=== PATIENT | male | born 1945 | race Caucasian/White ===

== ENCOUNTER 2016-06-03 05:48 | Inpatient (IN) | payer MEDICARE, OTHER ==
[2016-05-22 09:53] VITALS: BP 143/76
--- NOTE | 2016-05-30 13:50 | HPE ---
DATE OF ADMISSION: 06/03/2016 HISTORY OF PRESENT ILLNESS: This is a patient with continuing symptomatic right hip osteoarthritis. The patient has consented for a right total hip arthroplasty per Dr. Rodri Yañez. He is scheduled for medical optimization with Dr. Mohr on 05/30/2016 at 1:30. X-rays are consistent with advanced osteoarthritis. ALLERGIES: No known drug allergies. CURRENT MEDICATIONS (List includes): - simvastatin 20 mg - fenofibrate 160 mg - multivitamin - adult - fish oil 1000 mg - Advair HFA 115/21 mcg MEDICAL PROBLEM LIST (Includes): 1. Symptomatic right hip osteoarthritis. 2. Hypercholesteremia. 3. Kidney and lung disease PAST SURGICAL HISTORY: 1. Some sort right great toe realignment. 2. Transurethral resection of the prostate (TURP). 3. Hernia repair. 4. Hemorrhoidectomy. 5. Septoplasty. SOCIAL HISTORY: He is a one-pack per day smoker. Rare social ethanol intake. Denies illicit drugs. FAMILY HISTORY: Positive for diabetes and cancer. REVIEW OF SYSTEMS: Denies chest pain, shortness of breath, dyspnea on exertion, fever, chills, malaise, upper respiratory or urinary tract symptoms. PHYSICAL EXAMINATION: Vitals: Height was 65 and 3/4 inches, weight 174.8, temperature 97.2, blood pressure (BP) 130/80, pulse 63, and respirations 13. His right lower extremity was inspected. Skin temperature, color, sensory and motor within normal limits. He has limited right hip range of motion with irritability. Bowel sounds x4, soft, nontender. Chest rises symmetrically. Lungs are clear to auscultation. Neck supple. Negative jugular venous distention (JVD) or bruits. Normocephalic. Labs were inspected. Anion gap was 6. Mean corpuscular volume borderline at 96.4. I do not see the results of his nasal and sinus culture at this time. [facility] x[facility] at [facility] showed hyperinflation of the lung martinez consistent with chronic obstructive pulmonary disease (COPD), no acute disease, as read by Dr. Saturnino Pierre on 05/22/2016. EKG showed sinus rhythm, poor R-wave progression, as read by Dr. Bowen on 05/22/2016. IMPRESSION: 1. Symptomatic right hip osteoarthritis. 2. Patient consented for a right total hip arthroplasty per Dr. Rodri Yañez. 3. Medical optimization scheduled today at 1:[address] Mohr. 4. On-call to operating room (OR) 2 grams IV Kefzol in OR. 5. Sequential compression device (SCD) thromboembolic deterrent stockings (TEDS ) in OR. Addendum 06/03/16 Patient has a history of right lower extremity DVT s/p TURP in 2013. MTDD
[~2016-06-03] VITALS: Ht 170.2 cm; Wt 79.0 kg
[2016-06-03] VITALS (8 sets, daily range): BP systolic 121–174; BP diastolic 61–85
[~2016-06-03 05:48] MED LIST: /TAMS4CA PO; ADVA115A INH; ALBU17IN INH; COUM1TAB19 PO; FENO160T10 PO; FINA5TAB2 PO; FISH1000 PO; LEVO500I7 PO; LOFI160T PO; MULT1TAB10 PO; MULTTAB4 PO; PERC7.5T12 PO; SIMV20TA2 PO; SPIR1CAP INH; SPIRIVA INH; VIAG100T PO; VITATAB11 PO
[2016-06-03] MEDS ORDERED: LR 1,000 ML IV SCH ×2 (06:15→09:45)
[2016-06-03] MEDS ORDERED: COUM1TAB17 PO (06:49)
[2016-06-03] MEDS ORDERED: BUPIVACAINE HCL 0.5% 10 ML VIAL As Ordered ONE (07:11)
[2016-06-03] MEDS ORDERED: fentaNYL 100 MCG/2 ML INJECTION (J3010) As Ordered ONE ×2 (07:11→08:00)
[2016-06-03] MEDS ORDERED: TRANEXAMIC ACID 100 MG/ML 10ML VIAL As Ordered ONE (07:11)
[2016-06-03] MEDS ORDERED: BUPIVACAINE HCL 0.25% 30 ML VIAL As Ordered ONE (07:11)
[2016-06-03] MEDS ORDERED: ceFAZolin 1GM INJ (J0690) As Ordered ONE (07:12)
[2016-06-03] MEDS ORDERED: EPINEPHrine INJ 1 MG/ML 1ML VIAL/AMP As Ordered ONE ×2 (07:12→07:13)
[2016-06-03] MEDS ORDERED: PROPOFOL 200 MG/20 ML VIAL As Ordered ONE (08:00)
[2016-06-03] MEDS ORDERED: MIDAZOLAM INJ 2 MG/2 ML VIAL (J2250) As Ordered ONE (08:00)
[2016-06-03] MEDS ORDERED: LIDOCAINE 2% INJ 100 MG/5 ML SDV (FOR ANES.) As Ordered ONE (08:00)
[2016-06-03] MEDS ORDERED: PHENYLephrine HCL 500 MCG/5 ML (100MCG/ML) SYRINGE (J2370) As Ordered ONE (08:09)
[2016-06-03] MEDS ORDERED: EPINEPHrine INJ 1 MG/ML 1ML VIAL/AMP XX ONE (08:15)
[2016-06-03] MEDS ORDERED: BUPIVACAINE HCL 0.25% 30 ML VIAL XX ONE (08:15)
[2016-06-03] MEDS ORDERED: ceFAZolin 1GM INJ (J0690) IR ONE (08:15)
[2016-06-03] MEDS ORDERED: fentaNYL 100 MCG/2 ML INJECTION (J3010) XX ONE (08:15)
[2016-06-03] MEDS ORDERED: TRANEXAMIC ACID 100 MG/ML 10ML VIAL XX ONE (08:15)
[2016-06-03] MEDS ORDERED: BUPIVACAINE HCL 0.5% 10 ML VIAL XX ONE (08:15)
[2016-06-03] MEDS ORDERED: ePHEDrine SULFATE 25 MG/5 ML(5MG/ML) SYRINGE As Ordered ONE (08:20)
[2016-06-03] MEDS ORDERED: MORPHINE PCA 1MG/ML 100ML CADD As Ordered ONE (09:11)
[2016-06-03] MEDS ORDERED: PERCOCET 5MG/325MG TAB PO PRN (09:45)
[2016-06-03] MEDS ORDERED: NALBUPHINE HCL 10 MG/ML AMP (J2300) IV PRN (09:45)
[2016-06-03] MEDS ORDERED: ACETAMINOPHEN TAB 650MG DOSE (2X325MG) PO PRN (09:45)
[2016-06-03] MEDS ORDERED: fentaNYL 100 MCG/2 ML INJECTION (J3010) IV PRN (09:45)
[2016-06-03] MEDS: D5W/0.45% SODIUM CHLORIDE 500 ML IV SCH ×4 (09:45→23:27)
[2016-06-03] MEDS ORDERED: PATIENT IS CURRENTLY ON AN ON-Q PAIN BUSTER PAIN RELIEF SYSTEM XX SCH (09:45)
[2016-06-03] MEDS ORDERED: diphenhydrAMINE INJ 50MG/ML VIAL (J1200) IV PRN (09:45)
[2016-06-03] MEDS ORDERED: NALOXONE INJ 0.4 MG/1 ML VIAL (J2310) IV PRN (09:45)
[2016-06-03] MEDS ORDERED: FLEET ENEMA PR PRN (09:45)
[2016-06-03] MEDS ORDERED: EPIDURAL/PCA KEYS XX PRN (09:45)
[2016-06-03] MEDS ORDERED: ONDANSETRON 4MG/2ML VIAL (J2405) IV PRN ×2 (09:45)
[2016-06-03] MEDS ORDERED: MORPHINE PCA 1MG/ML 100ML CADD IV PRN (09:45)
[2016-06-03] MEDS ORDERED: METOCLOPRAMIDE INJ 10MG/2ML VIAL (J2765) IV PRN (09:45)
[2016-06-03] MEDS ORDERED: ALBUTEROL 90 MCG/ACT 8GM HFA INHALER INH PRN (16:15)
[2016-06-03] MEDS ORDERED: WARFARIN SOD 5 MG TAB PO ONE (17:00)
--- NOTE | 2016-06-03 17:03 | RO ---
DATE OF PROCEDURE: 06/03/2016 PREOPERATIVE DIAGNOSIS: Right hip osteoarthritis. POSTOPERATIVE DIAGNOSIS: Right hip osteoarthritis. OPERATION PERFORMED: Right total hip replacement. SURGEON: Dr. Rodri Yañez BEAMING INSPECTOR: MOLINA Chu HISTORY: A 71-year-old male who is presenting with pain in his right hip secondary to osteoarthritis. FINDINGS AT SURGERY: Osteoarthritis. A #4 [place], a 56 cup with a 36 inside diameter; the neck was 1.5. At the conclusion, we had good range of motion, no instability and estimated blood loss of 150 mL. Mr. Alcocer manipulated the leg and retracted vital structures in order to expedite the procedure. DESCRIPTION OF PROCEDURE: After two attempts at spinal anesthetic, the patient had a Olivares catheter placed, IV antibiotics were administered and he was then turned right side up in the [place], padded appropriately and then prepped and draped. The right hip incision was anterolateral, the iliotibial (IT) band split in line with its fibers, the abductors reflected anteriorly. The labrum was incised and the hip dislocated. Intermedullary canal was reamed to a [place] #4. The neck was divided. Acetabulum was exposed and reamed sequentially from 46 up to 55 mm. At this point, we were at the base of the cotyloid fossa. We had good bleeding bone. The wound was thoroughly irrigated with pulsatile irrigation and then the permanent cup malleted into place, apex hole eliminator and the plastic installed. Following this, the stem was broached to a #4 and trial reductions were performed. After trial components were removed, the leg was irrigated and the permanent stem malleted into place. The Anna taper dried and engaged and the hip reduced. Range of motion showed good stability. The wound was irrigated. A PainBuster catheter was threaded into the hip for postoperative analgesia. The capsule was closed with heavy PDS suture. The abductors were repaired back to their insertion with the same heavy PDS. IT band closed in a similar fashion, subcu closed with #2-0 PDS and do. Dry dressing was applied and the patient transported to the recovery room, breathing spontaneously having tolerated the procedure well. Addendum to Derrick Yancey: The patient and his significant other were advised once again in the preoperative holding area that he should cease all use of the nicotine products, and we discussed the care and management to prevent deep vein thrombosis (DVT) as he does have a history for that. He expressed understanding and wished to proceed with surgery with no intention of stopping his use of nicotine.
[2016-06-03] MEDS: ADVAIR DISKUS 100/50 INH PWD INH SCH (20:02)
[2016-06-03] MEDS: SIMVASTATIN 20 MG TAB PO SCH (20:02)
[2016-06-04 03:00] VITALS: BP 171/80
[2016-06-04] MEDS: D5W/0.45% SODIUM CHLORIDE 500 ML IV SCH (04:21)
[2016-06-04 06:00] VITALS: BP 134/75
[2016-06-04] MEDS ORDERED: PERCOCET 5MG/325MG TAB PO PRN ×2 (06:45)
[2016-06-04] MEDS ORDERED: ONDANSETRON 4 MG TAB (S0181) PO PRN (06:45)
[2016-06-04 06:53] LABS: MEAN CORPUSCULAR HEMOGLOBIN 32.8 pg (27.0-33.0); MEAN CORPUSCULAR HGB CONC 34.5 g/dl (32.0-36.5); MEAN CORPUSCULAR VOLUME 94.9 fl (80.0-96.0); RED CELL DISTRIBUTION WIDTH 13.4 % (11.5-14.5); WHITE BLOOD COUNT 10.5 K/mm3 (4.0-10.0)
[2016-06-04 06:58] LABS: INR 1.31
[2016-06-04] MEDS: ADVAIR DISKUS 100/50 INH PWD INH SCH ×2 (07:21→08:31)
[2016-06-04] MEDS: TIOTROPIUM INHALER/CAPSULE (SPIRIVA) INH SCH (07:22)
--- NOTE | 2016-06-04 08:04 | IPNPDOC ---
Assessment/Plan Date Seen The patient was seen on 06/04/16. Problems Problems: (1) Hx pulmonary embolism Status: Resolved Problem Text: H/O PE in past felt to be from immobility Encourage OOB as soon as possible and Anticoagulation per ortho (2) COPD (chronic obstructive pulmonary disease) Status: Chronic Response to Treatment: Stable Problem Text: Continue Spiriva and Advair with Albuterol prn (3) CKD (chronic kidney disease), stage III Status: Chronic Response to Treatment: Stable Problem Text: Monitor renal function post-op (4) Hyperlipemia Status: Chronic Response to Treatment: Stable Problem Text: Continue Zocor Plan / VTE VTE Prophylaxis Ordered?: Yes (Coumadin per ortho) Subjective Review of Systems CC/HPI The patient is a 71-year-old male admitted with a reason for visit of Right Hip Arthritis. Events since last encounter Feels well. Hip pain as expected. Tolerating pain meds. Constitutional: Denies: Chills, Fever Pulmonary: Denies: Cough, Dyspnea Cardiovascular: Denies: Chest Pain, Palpitations Gastrointestinal: Denies: Abdominal Pain, Constipation, Diarrhea, Nausea, Vomiting Musculoskeletal: Reports: Joint Pain (Right hip pain post-operatively as expected) Objective Physical Examination General Exam: Positive: Alert, No Acute Distress Chest Exam: Positive: Clear to auscultation, Normal air movement Heart Exam: Positive: Rate Normal, Negative: Murmurs Abdomen Exam: Positive: Normal bowel sounds, Soft, Negative: Tenderness Extremity Exam: Negative: Edema Vital Signs/I&O Vital Signs Date Time Temp Pulse Resp B/P Pulse Ox O2 Delivery O2 Flow Rate FiO2 06/04/16 06:00 99.7 91 14 134/75 99 Nasal Cannula 2.0 I&O- Last 24 Hours up to 6 AM 06/04/16 06:00 Intake Total 3730 ml Output Total 2650 ml Balance 1080 ml Laboratory Data Labs 24H Laboratory Tests 2 06/04/16 06:30: Prothromb Time International Ratio 1.31, Prothrombin Time 16.4H CBC/BMP Laboratory Tests 06/04/16 06:30 Red Blood Count 4.17 L, Mean Corpuscular Volume 94.9, Mean Corpuscular Hemoglobin 32.8, Mean Corpuscular Hemoglobin Concent 34.5, Red Cell Distribution Width 13.4 CORKY MONTAÑO PA-C Jun 04, 2016 08:04
--- NOTE | 2016-06-04 08:13 | REP ---
Clinical: Status post arthroplasty. Technique: AP and cross-table lateral views. Findings: The patient is status post right hip replacement with normal positioning and appearance to the femoral and acetabular components. Overlying postsurgical changes appreciated. Impression: Satisfactory right hip replacement radiographs. Signed by Gilberto Nava MD 06/04/2016 08:04 A
[2016-06-04] MEDS: MOM 30ML SUSPENSION UDC PO SCH (08:30)
[2016-06-04] MEDS: PERCOCET 5MG/325MG TAB PO PRN ×4 (08:51→21:28)
[2016-06-04] MEDS: SENOKOT S TAB PO SCH ×2 (09:00→21:27)
[2016-06-04] MEDS ORDERED: MIRALAX *UNIT DOSE* 17GM PACKET PO SCH (09:00)
[2016-06-04 09:28] LABS: ALBUMIN 3.3 GM/DL (3.2-5.2); ALKALINE PHOSPHATASE 51 U/L (45-117); ALT/SGPT 17 U/L (12-78); ANION GAP 9 MEQ/L (8-16); AST/SGOT 27 U/L (15-37); BILIRUBIN,TOTAL 0.6 MG/DL (0.2-1.0); BLOOD UREA NITROGEN 12 MG/DL (7-18); CALCIUM LEVEL 8.8 MG/DL (8.8-10.2); CARBON DIOXIDE LEVEL 27 MEQ/L (21-32); CHLORIDE LEVEL 104 MEQ/L (98-107); CREATININE FOR GFR 1.12 MG/DL (0.70-1.30); GLOMERULAR FILTRATION RATE > 60.0 (>42); GLUCOSE, FASTING 114 MG/DL (83-110); POTASSIUM SERUM 3.7 MEQ/L (3.5-5.1); SODIUM LEVEL 140 MEQ/L (136-145); TOTAL PROTEIN 6.3 GM/DL (6.4-8.2)
[2016-06-04 10:00] VITALS: BP 176/75
[2016-06-04 14:00] VITALS: BP 123/62
[2016-06-04] MEDS ORDERED: WARFARIN SOD 5 MG TAB PO ONE (17:00)
[2016-06-04 18:00] VITALS: BP 133/64
[2016-06-04] MEDS: SIMVASTATIN 20 MG TAB PO SCH (21:27)
[2016-06-04 22:00] VITALS: BP 162/69
[2016-06-05 00:15] VITALS: BP 112/60
[2016-06-05] MEDS: PERCOCET 5MG/325MG TAB PO PRN ×2 (05:50→12:21)
[2016-06-05 06:00] VITALS: BP 120/62
[2016-06-05 07:16] LABS: INR 1.38
[2016-06-05] MEDS: ADVAIR DISKUS 100/50 INH PWD INH SCH (07:23)
[2016-06-05] MEDS: TIOTROPIUM INHALER/CAPSULE (SPIRIVA) INH SCH (07:23)
[2016-06-05] MEDS ORDERED: PERC5TAB6 PO (08:19)
[2016-06-05] MEDS ORDERED: COUM2.5T11 PO (08:19)
[2016-06-05] MEDS: MOM 30ML SUSPENSION UDC PO SCH (08:53)
[2016-06-05] MEDS: SENOKOT S TAB PO SCH (08:53)
[2016-06-05] MEDS ORDERED: MIRALAX *UNIT DOSE* 17GM PACKET PO SCH (09:00)
--- NOTE | 2016-06-05 12:05 | IPN ---
DATE: 06/05/2016 Derrick is seen on [facility]. He is constipated. Otherwise, he offers no complaints. No chest pain or shortness of breath. He feels that he is progressing well with his rehabilitation. PHYSICAL EXAMINATION: 120/60, pulse 79, respiratory rate 18, 95% oxygen saturation, 99.3 degrees. GENERAL APPEARANCE: Alert, conversant, no distress. LUNGS: Clear. HEART: Regular rate and rhythm. ABDOMEN: Soft, nontender, nondistended. Good bowel sounds. IMPRESSION: 1. Constipation. Bowel care was augmented. 2. History of pulmonary embolism. Anticoagulation per orthopedics. 3. Chronic obstructive pulmonary disease (COPD). Continue Spiriva and Advair. 4. Chronic kidney disease. Monitor renal function and adjust dose of medications accordingly. 5. Hyperlipidemia. Continue simvastatin.
[2016-06-05 14:00] VITALS: BP 126/67
[2016-06-05] MEDS ORDERED: WARFARIN SOD 7.5 MG TAB PO ONE (17:00)
--- NOTE | 2016-06-07 08:59 | DSES ---
DATE OF ADMISSION: 06/03/2016 DATE OF DISCHARGE: 06/05/2016 ADMITTING DIAGNOSIS: Right hip osteoarthritis (OA). OTHER DIAGNOSES: 1. Hypercholesterolemia. 2. Kidney disease. 3. Lung disease. DISCHARGE DIAGNOSIS: Right hip OA status post right total hip arthroplasty. OPERATION PERFORMED: Right total hip arthroplasty. HISTORY: This is a 71-year-old male with progressively worsening right hip pain and stiffness. The patient was admitted for elective right hip replacement. HOSPITAL COURSE: The patient was admitted on the day of surgery and underwent a right hip arthroplasty which was uneventful. He did well in the postoperative period and his hospital course was without complications. The patient was up with physical therapy per their protocol and his pain was controlled. On the day of discharge, the patient was doing well. He was weightbearing as tolerated. He will use adjusted dose Coumadin and thromboembolic deterrent (INES) stockings for 30 days postoperatively for deep vein thrombosis (DVT) prophylaxis. He will use oral medications for pain control. Also, he will follow in the office in 2 weeks for staple removal, will resume preoperative medications and diet, and he was given instructions for wound monitoring and activity limitations. Please refer to the medical record for further details.
== END 2016-06-05 14:20 | disposition home health service (06) | DRG 470 ==
LOC: M OR 05:48 → M MS5PR 10:40
PROVIDERS: ADMIT Orthopaedic Surgery; ATTEND Orthopaedic Surgery
PROC: 0SR902A Replacement of Right Hip Joint with Metal on Polyethylene Synthetic Substitute, Uncemented, Open Approach (ICD-10-PCS; principal; 2016-06-03 07:30)
DX: M16.11 Unilateral primary osteoarthritis, right hip (principal); E78.5 Hyperlipidemia, unspecified; F17.210 Nicotine dependence, cigarettes, uncomplicated; J44.9 Chronic obstructive pulmonary disease, unspecified; N18.3 Chronic kidney disease, stage 3 (moderate); K59.00 Constipation, unspecified; Z86.718 Personal history of other venous thrombosis and embolism; Z79.899 Other long term (current) drug therapy

== ENCOUNTER → 2016-06-17 | Outpatient (REF) | payer MEDICARE, OTHER ==
[~2016-06-17] MED LIST changes: +COUM1TAB17 PO; +COUM2.5T11 PO; +PERC5TAB6 PO
[2016-06-17 13:45] LABS: INR 1.2
== END ==
LOC: M LABDRAW1 10:11
PROVIDERS: ATTEND Orthopaedic Surgery
DX: Z79.01 Long term (current) use of anticoagulants (principal)

== ENCOUNTER → 2016-10-01 | Outpatient (REF) | payer MEDICARE, OTHER ==
[2016-10-01 16:03] LABS: MEAN CORPUSCULAR HEMOGLOBIN 32.7 pg (27.0-33.0); MEAN CORPUSCULAR HGB CONC 33.9 g/dl (32.0-36.5); MEAN CORPUSCULAR VOLUME 96.7 fl (80.0-96.0); RED CELL DISTRIBUTION WIDTH 13.4 % (11.5-14.5); WHITE BLOOD COUNT 5.6 K/mm3 (4.0-10.0)
[2016-10-01 16:16] LABS: ALBUMIN 3.9 GM/DL (3.2-5.2); ALBUMIN/GLOBULIN RATIO 1.26 (1.00-1.93); ALKALINE PHOSPHATASE 91 U/L (45-117); ALT/SGPT 16 U/L (12-78); ANION GAP 8 MEQ/L (8-16); AST/SGOT 14 U/L (15-37); BILIRUBIN,TOTAL 0.3 MG/DL (0.2-1.0); BLOOD UREA NITROGEN 20 MG/DL (7-18); CALCIUM LEVEL 9.2 MG/DL (8.8-10.2); CARBON DIOXIDE LEVEL 27 MEQ/L (21-32); CHLORIDE LEVEL 107 MEQ/L (98-107); CHOLESTEROL LEVEL 184 MG/DL (<200); CREATININE FOR GFR 1.06 MG/DL (0.70-1.30); GLOMERULAR FILTRATION RATE > 60.0 (>42); GLUCOSE, FASTING 118 MG/DL (83-110); SODIUM LEVEL 142 MEQ/L (136-145); TRIGLYCERIDES LEVEL 61 MG/DL (<150)
== END ==
LOC: M SFHCLACO 09:49
PROVIDERS: ATTEND Physician Assistant
DX: F17.210 Nicotine dependence, cigarettes, uncomplicated (principal); E78.2 Mixed hyperlipidemia

== ENCOUNTER → 2016-12-18 | Outpatient (CLI) | payer MEDICARE, OTHER ==
[~2016-12-18] MED LIST changes: -COUM2.5T11 PO; +COUM2.5T17 PO; +PERC5TAB12 PO; -PERC5TAB6 PO
== END ==
LOC: M SMT 10:37
PROVIDERS: ATTEND Nurse Practitioner Women's Health
DX: N40.0 Benign prostatic hyperplasia without lower urinary tract symptoms (principal); Z12.5 Encounter for screening for malignant neoplasm of prostate
CPT/HCPCS: 36415; 81001; 87086; G0103; G0463

== ENCOUNTER → 2017-01-16 | Outpatient (REF) | payer MEDICARE, OTHER ==
[2017-01-16 15:02] LABS: ALBUMIN 3.9 GM/DL (3.2-5.2); ALBUMIN/GLOBULIN RATIO 1.26 (1.00-1.93); BILIRUBIN,TOTAL 0.3 MG/DL (0.2-1.0); CALCIUM LEVEL 9.9 MG/DL (8.8-10.2); CREATININE FOR GFR 1.37 MG/DL (0.70-1.30); GLOMERULAR FILTRATION RATE 54.5 (>42); POTASSIUM SERUM 4.4 MEQ/L (3.5-5.1)
== END ==
LOC: M SFHCLACO 08:32
PROVIDERS: ATTEND Physician Assistant
DX: E78.2 Mixed hyperlipidemia (principal); J44.1 Chronic obstructive pulmonary disease with (acute) exacerbation; N40.0 Benign prostatic hyperplasia without lower urinary tract symptoms; N18.3 Chronic kidney disease, stage 3 (moderate); Z12.5 Encounter for screening for malignant neoplasm of prostate; N52.9 Male erectile dysfunction, unspecified; Z86.711 Personal history of pulmonary embolism; M25.551 Pain in right hip

== ENCOUNTER → 2017-05-08 | Outpatient (CLI) | payer MEDICARE, OTHER | LOC: M SMT PRO 08:12 | DX: N52.9 Male erectile dysfunction, unspecified (principal) | CPT/HCPCS: 93980 ==

== ENCOUNTER → 2017-05-22 | Outpatient (REF) | payer MEDICARE, OTHER ==
[2017-05-22 15:14] LABS: ALBUMIN 4.1 GM/DL (3.2-5.2); ALBUMIN/GLOBULIN RATIO 1.37 (1.00-1.93); ALKALINE PHOSPHATASE 51 U/L (45-117); ALT/SGPT 21 U/L (12-78); ANION GAP 6 MEQ/L (8-16); AST/SGOT 24 U/L (7-37); BILIRUBIN,TOTAL 0.4 MG/DL (0.2-1.0); BLOOD UREA NITROGEN 23 MG/DL (7-18); CALCIUM LEVEL 9.4 MG/DL (8.8-10.2); CARBON DIOXIDE LEVEL 29 MEQ/L (21-32); CHLORIDE LEVEL 107 MEQ/L (98-107); CHOLESTEROL LEVEL 135 MG/DL (<200); CREATININE FOR GFR 1.23 MG/DL (0.70-1.30); GLOMERULAR FILTRATION RATE > 60.0 (>42); GLUCOSE, FASTING 99 MG/DL (83-110); POTASSIUM SERUM 3.9 MEQ/L (3.5-5.1); SODIUM LEVEL 142 MEQ/L (136-145); TOTAL PROTEIN 7.1 GM/DL (6.4-8.2); TRIGLYCERIDES LEVEL 51 MG/DL (<150)
== END ==
LOC: M SFHCLACO 08:10
PROVIDERS: ATTEND Physician Assistant
DX: E78.2 Mixed hyperlipidemia (principal); J44.1 Chronic obstructive pulmonary disease with (acute) exacerbation

== ENCOUNTER → 2017-08-12 | Outpatient (CLI) | payer MEDICARE, OTHER ==
[2017-08-12 10:19] LABS: HEMATOCRIT 45.4 % (42.0-52.0); HEMOGLOBIN 15.3 g/dl (14.0-18.0); MEAN CORPUSCULAR HEMOGLOBIN 31.8 pg (27.0-33.0); MEAN CORPUSCULAR HGB CONC 33.7 g/dl (32.0-36.5); MEAN CORPUSCULAR VOLUME 94.4 fl (80.0-96.0); PLATELET COUNT, AUTOMATED 273 10^3/uL (150-450); RED BLOOD COUNT 4.81 10^6/uL (4.30-6.10); RED CELL DISTRIBUTION WIDTH 12.4 % (11.5-14.5); WHITE BLOOD COUNT 5.7 10^3/uL (4.0-10.0)
[2017-08-12 10:30] LABS: INR 1.02; PROTHROMBIN TIME 13.5 SECONDS (12.4-14.5)
[2017-08-12 10:31] LABS: PARTIAL THROMBOPLASTIN TIME 31.8 SECONDS (26.8-37.9)
[2017-08-12 11:08] LABS: ANION GAP 8 MEQ/L (8-16); BLOOD UREA NITROGEN 21 MG/DL (7-18); CALCIUM LEVEL 9.6 MG/DL (8.8-10.2); CARBON DIOXIDE LEVEL 28 MEQ/L (21-32); CHLORIDE LEVEL 104 MEQ/L (98-107); CREATININE FOR GFR 1.19 MG/DL (0.70-1.30); GLOMERULAR FILTRATION RATE > 60.0 (>42); GLUCOSE, FASTING 108 MG/DL (70-100); POTASSIUM SERUM 3.9 MEQ/L (3.5-5.1); SODIUM LEVEL 140 MEQ/L (136-145)
== END ==
LOC: M LAB 09:44
DX: Z01.818 Encounter for other preprocedural examination (principal); N52.9 Male erectile dysfunction, unspecified; R94.31 Abnormal electrocardiogram [ECG] [EKG]
CPT/HCPCS: 71046

== ENCOUNTER → 2017-08-15 | Outpatient (REF) | payer MEDICARE, OTHER | LOC: M SFHCPLAZ 17:17 | DX: L02.811 Cutaneous abscess of head [any part, except face] (principal) | CPT/HCPCS: 87186 ==

== ENCOUNTER → 2017-08-26 | Outpatient (REF) | payer MEDICARE, OTHER ==
[2017-08-26 13:43] LABS: BACTERIA, URINE SMALL AMOUNT; MICROSCOPIC EXAM PERFORMED; MUCUS, URINE SMALL AMOUNT (NEGATIVE); RBC, URINE 0-1 /hpf (0-3); WBC, URINE 0-1 /hpf (0-3)
[2017-08-26 14:03] LABS: TOTAL PROTEIN,RANDOM URINE 79.2 MG/DL (0.0-12.0)
[2017-08-26 16:24] LABS: SQUAMOUS EPITHELIAL CELL URINE NONE SEEN /hpf (SMALL AMT)
== END ==
LOC: M LAB REF 12:59
DX: R80.9 Proteinuria, unspecified (principal)
CPT/HCPCS: 82570

== ENCOUNTER 2017-08-27 05:56 | Day surgery (SDC) | payer MEDICARE, OTHER ==
[2017-08-27] MEDS ORDERED: PROPOFOL 200 MG/20 ML VIAL As Ordered ×6 (06:32→06:37)
[2017-08-27] MEDS ORDERED: NEOSTIGMINE 10 MG/10 ML VIAL (J2710) As Ordered ×2 (06:32)
[2017-08-27] MEDS ORDERED: ROCURONIUM BROMIDE 50 MG/5 ML VIAL As Ordered ×4 (06:32→06:33)
[2017-08-27] MEDS ORDERED: LIDOCAINE 2% INJ 100 MG/5 ML SDV (FOR ANES.) As Ordered ×2 (06:32)
[2017-08-27] MEDS ORDERED: GLYCOPYRROLATE INJ 0.2 MG/ML 2 ML VIAL As Ordered ×2 (06:33)
[2017-08-27] MEDS ORDERED: MIDAZOLAM INJ 2 MG/2 ML VIAL (J2250) As Ordered ×2 (06:38)
[2017-08-27] MEDS ORDERED: fentaNYL 100 MCG/2 ML INJECTION (J3010) As Ordered ×2 (06:39)
[2017-08-27] MEDS: LR 1,000 ML IV ×2 (07:08)
[2017-08-27] MEDS: GENTAMICIN SULF INJ 80MG/2ML VIAL (J1580) As Ordered ×2 (08:54)
[2017-08-27] MEDS: BACTRIM IV 160MG-800MG/10ML VIAL (S0039) XX ×2 (09:00)
[2017-08-27] MEDS: BACITRACIN OINT 30GM As Ordered ×2 (09:37)
[2017-08-27] MEDS ORDERED: ONDANSETRON 4MG/2ML VIAL (J2405) IV ×2 (10:15)
[2017-08-27] MEDS ORDERED: LR 1,000 ML IV ×2 (10:15)
[2017-08-27] MEDS ORDERED: fentaNYL 100 MCG/2 ML INJECTION (J3010) IV ×2 (10:15)
[2017-08-27] MEDS ORDERED: ACETAMINOPHEN 650MG ER TAB (TYLENOL ARTHRITIS) PO ×2 (14:00)
[2017-08-27] MEDS: PERCOCET 5MG/325MG TAB PO ×2 (15:01)
[2017-08-27] MEDS ORDERED: BACTRIM 160MG/800MG DS TAB PO ×2 (21:00)
== END 2017-08-27 16:58 | disposition home or self-care (01) ==
LOC: M SDC 05:56
DX: N52.03 Combined arterial insufficiency and corporo-venous occlusive erectile dysfunction (principal); E78.4 Other hyperlipidemia; J44.9 Chronic obstructive pulmonary disease, unspecified; J32.9 Chronic sinusitis, unspecified; Z79.52 Long term (current) use of systemic steroids; Z79.899 Other long term (current) drug therapy; F17.210 Nicotine dependence, cigarettes, uncomplicated
CPT/HCPCS: 54405

== ENCOUNTER → 2017-09-22 | Outpatient (CLI) | payer MEDICARE, OTHER | LOC: M RAD 10:11 | DX: N18.3 Chronic kidney disease, stage 3 (moderate) (principal) | CPT/HCPCS: 76775 ==

== ENCOUNTER → 2017-09-30 | Outpatient (CLI) | payer MEDICARE, OTHER ==
[~2017-09-30] MED LIST changes: -/TAMS4CA PO; -ADVA115A INH; -ALBU17IN INH; -COUM1TAB17 PO; -COUM1TAB19 PO; -COUM2.5T17 PO; -FENO160T10 PO; -FINA5TAB2 PO; -FISH1000 PO; +GASTROGRAFIN SOLUTION 30ML (Q9963) As Ordered; +ISOVUE-370 76% 100ML VIAL (Q9967) As Ordered; -LEVO500I7 PO; -LOFI160T PO; -MULT1TAB10 PO; -MULTTAB4 PO; -PERC5TAB12 PO; -PERC7.5T12 PO; -SIMV20TA2 PO; -SPIR1CAP INH; -SPIRIVA INH; -VIAG100T PO; -VITATAB11 PO
== END ==
LOC: M RAD 14:28
DX: N18.3 Chronic kidney disease, stage 3 (moderate) (principal); N28.1 Cyst of kidney, acquired
CPT/HCPCS: Q9963

== ENCOUNTER → 2017-10-17 | Outpatient (REF) | payer MEDICARE, OTHER | LOC: M SMT 17:03 | DX: N52.9 Male erectile dysfunction, unspecified (principal) | CPT/HCPCS: 87186 ==

== ENCOUNTER → 2017-10-23 | Outpatient (REF) | payer MEDICARE, OTHER | LOC: M SMT 10-24 13:54 | DX: Z96.89 Presence of other specified functional implants (principal) | CPT/HCPCS: 87205 ==

== ENCOUNTER → 2017-11-20 | Outpatient (REF) | payer MEDICARE, OTHER ==
[2017-11-20 15:05] LABS: ALBUMIN 3.7 GM/DL (3.2-5.2); ALBUMIN/GLOBULIN RATIO 1.19 (1.00-1.93); ALKALINE PHOSPHATASE 58 U/L (45-117); ALT/SGPT 23 U/L (12-78); ANION GAP 7 MEQ/L (8-16); AST/SGOT 23 U/L (7-37); BILIRUBIN,TOTAL 0.4 MG/DL (0.2-1.0); BLOOD UREA NITROGEN 14 MG/DL (7-18); CALCIUM LEVEL 9.2 MG/DL (8.8-10.2); CARBON DIOXIDE LEVEL 29 MEQ/L (21-32); CHLORIDE LEVEL 110 MEQ/L (98-107); CHOLESTEROL LEVEL 118 MG/DL (<200); CHOLESTEROL RISK RATIO 3.371 (<5); CREATININE FOR GFR 1.29 MG/DL (0.70-1.30); GLOMERULAR FILTRATION RATE 58.3 (>42); GLUCOSE, FASTING 90 MG/DL (70-100); HDL CHOLESTEROL 35 MG/DL (>40); NON-HDL-C 83 MG/DL; POTASSIUM SERUM 3.7 MEQ/L (3.5-5.1); SODIUM LEVEL 146 MEQ/L (136-145); TOTAL PROTEIN 6.8 GM/DL (6.4-8.2); TRIGLYCERIDES LEVEL 95 MG/DL (<150)
== END ==
LOC: M SFHCLACO 08:18
DX: E78.2 Mixed hyperlipidemia (principal); J44.1 Chronic obstructive pulmonary disease with (acute) exacerbation
CPT/HCPCS: 80053

== ENCOUNTER → 2017-12-01 | Outpatient (REF) | payer MEDICARE, OTHER | LOC: M SMT 12:08 | DX: T14.8XXA Other injury of unspecified body region, initial encounter (principal); N52.8 Other male erectile dysfunction; Z96.89 Presence of other specified functional implants; X58.XXXA Exposure to other specified factors, initial encounter; Y92.9 Unspecified place or not applicable | CPT/HCPCS: 87070; 87077; 87186 ==

== ENCOUNTER → 2017-12-29 | Outpatient (REF) | payer MEDICARE, OTHER | LOC: M SMT 12:43 | DX: T83.61XS Infection and inflammatory reaction due to implanted penile prosthesis, sequela (principal) | CPT/HCPCS: 87070; 87077; 87186 ==

== ENCOUNTER → 2018-01-19 | Outpatient (REF) | payer MEDICARE, OTHER | LOC: M SMT 13:14 | DX: T83.6 Infection and inflammatory reaction due to prosthetic device, implant and graft in genital tract (principal); X58.XXXA Exposure to other specified factors, initial encounter; Y92.9 Unspecified place or not applicable | CPT/HCPCS: 87186; 87205 ==

== ENCOUNTER → 2018-11-24 | Outpatient (REF) | payer MEDICARE, OTHER ==
[~2018-11-24] MED LIST changes: +ADVA115A INH; +ALBU17IN INH; +BACT800T5 PO; +CO Q10CA PO; +COUM1TAB17 PO; +COUM1TAB19 PO; +COUM2.5T17 PO; +FENO160T10 PO; +FINA5TAB2 PO; +FISH1000 PO; +FLOM0.4C39 PO; -GASTROGRAFIN SOLUTION 30ML (Q9963) As Ordered; -ISOVUE-370 76% 100ML VIAL (Q9967) As Ordered; +LEVO500I7 PO; +MULT1TAB10 PO; +MULTTAB4 PO; +PERC5TAB12 PO; +PERC7.5T12 PO; +SIMV20TA2 PO; +SPIR1CAP INH; +SPIRIVA INH; +TYLE650T35 PO; +VIAG100T PO; +VITATAB11 PO; +[UNRECOGNIZED DRUG - CODE] PO
[2018-11-24 20:33] LABS: ALBUMIN 3.8 GM/DL (3.2-5.2); ALT/SGPT 18 U/L (12-78); BILIRUBIN,TOTAL 0.6 MG/DL (0.2-1.0); BLOOD UREA NITROGEN 9 MG/DL (7-18); CALCIUM LEVEL 9.6 MG/DL (8.8-10.2); CARBON DIOXIDE LEVEL 30 MEQ/L (21-32); CHLORIDE LEVEL 106 MEQ/L (98-107); CHOLESTEROL LEVEL 155 MG/DL (<200); CHOLESTEROL RISK RATIO 3.522 (<5); GLOMERULAR FILTRATION RATE > 60.0 (>42); GLUCOSE, FASTING 75 MG/DL (70-100); HDL CHOLESTEROL 44 MG/DL (>40); LDL CHOLESTEROL 98 MG/DL (<100); NON-HDL-C 111 MG/DL; POTASSIUM SERUM 4.4 MEQ/L (3.5-5.1); SODIUM LEVEL 142 MEQ/L (136-145); TRIGLYCERIDES LEVEL 64 MG/DL (<150)
== END ==
LOC: M SFHCADAM 14:48
PROVIDERS: ATTEND Physician Assistant
DX: E78.2 Mixed hyperlipidemia (principal); J44.1 Chronic obstructive pulmonary disease with (acute) exacerbation

== ENCOUNTER → 2019-05-20 | Outpatient (REF) | payer MEDICARE, OTHER ==
[~2019-05-20] MED LIST changes: +SIMV20TA22 PO
[2019-05-20 13:06] LABS: ALBUMIN 3.8 GM/DL (3.2-5.2); ALT/SGPT 29 U/L (12-78); BILIRUBIN,TOTAL 0.3 MG/DL (0.2-1.0); BLOOD UREA NITROGEN 23 MG/DL (7-18); CALCIUM LEVEL 9.1 MG/DL (8.8-10.2); CARBON DIOXIDE LEVEL 26 MEQ/L (21-32); CHLORIDE LEVEL 110 MEQ/L (98-107); CHOLESTEROL LEVEL 164 MG/DL (<200); CHOLESTEROL RISK RATIO 4.432 (<5); CREATININE FOR GFR 0.99 MG/DL (0.70-1.30); GLOMERULAR FILTRATION RATE > 60.0 (>42); GLUCOSE, FASTING 89 MG/DL (70-100); HDL CHOLESTEROL 37 MG/DL (>40); LDL CHOLESTEROL 102 MG/DL (<100); NON-HDL-C 127 MG/DL; POTASSIUM SERUM 3.9 MEQ/L (3.5-5.1); SODIUM LEVEL 143 MEQ/L (136-145); TOTAL PROTEIN 6.7 GM/DL (6.4-8.2); TRIGLYCERIDES LEVEL 123 MG/DL (<150)
== END ==
LOC: M SFHCADAM 11:15
PROVIDERS: ATTEND Physician Assistant
DX: E78.2 Mixed hyperlipidemia (principal); Z12.5 Encounter for screening for malignant neoplasm of prostate
CPT/HCPCS: 80053; 80061; G0103

== ENCOUNTER → 2019-10-11 | Outpatient (REF) | payer MEDICARE, OTHER ==
[~2019-10-11] MED LIST changes: +ACET650T61 PO; -TYLE650T35 PO
[2019-10-11 17:57] LABS: APPEARANCE, URINE HAZY (CLEAR); BACTERIA, URINE AUTO NEGATIVE (NEGATIVE); BILIRUBIN, URINE AUTO NEGATIVE (NEGATIVE); BLOOD, URINE BLOOD NEGATIVE (NEGATIVE); COLOR, URINE YELLOW (YELLOW); GLUCOSE, URINE (UA) AUTO NEGATIVE (NEGATIVE); KETONE, URINE AUTO NEGATIVE (NEGATIVE); LEUKOCYTE ESTERASE, URINE AUTO NEGATIVE (NEGATIVE); NITRITE, URINE AUTO NEGATIVE (NEGATIVE); PROTEIN, URINE AUTO NEGATIVE (NEGATIVE); RBC, URINE AUTO 1 /HPF (0-3); SPECIFIC GRAVITY URINE AUTO 1.011 (1.002-1.035); SQUAMOUS EPITHELIAL CELL UR AU 0 /HPF (0-6); UROBILINOGEN, URINE AUTO 0.2 mg/dL (0.0-2.0); WBC, URINE AUTO 0 /HPF (0-3)
== END ==
LOC: M SMT 17:17
PROVIDERS: ATTEND Nurse Practitioner Women's Health
DX: R31.29 Other microscopic hematuria (principal)
CPT/HCPCS: 81001; 87086; G0463

== ENCOUNTER → 2019-10-26 | Outpatient (REF) | payer MEDICARE, OTHER ==
[~2019-10-26] MED LIST changes: -ACET650T61 PO; +TYLE650T35 PO
[2019-10-26 18:38] LABS: APPEARANCE, URINE HAZY (CLEAR); BACTERIA, URINE AUTO NEGATIVE (NEGATIVE); BILIRUBIN, URINE AUTO NEGATIVE (NEGATIVE); BLOOD, URINE BLOOD NEGATIVE (NEGATIVE); COLOR, URINE YELLOW (YELLOW); GLUCOSE, URINE (UA) AUTO NEGATIVE (NEGATIVE); KETONE, URINE AUTO NEGATIVE (NEGATIVE); LEUKOCYTE ESTERASE, URINE AUTO NEGATIVE (NEGATIVE); NITRITE, URINE AUTO NEGATIVE (NEGATIVE); PROTEIN, URINE AUTO NEGATIVE (NEGATIVE); RBC, URINE AUTO 0 /HPF (0-3); SPECIFIC GRAVITY URINE AUTO 1.004 (1.002-1.035); SQUAMOUS EPITHELIAL CELL UR AU 0 /HPF (0-6); UROBILINOGEN, URINE AUTO 0.2 mg/dL (0.0-2.0); WBC, URINE AUTO 0 /HPF (0-3)
== END ==
LOC: M LABSMT 15:59 → M SFHCADAM 16:00
PROVIDERS: ATTEND Nurse Practitioner Women's Health
DX: R31.29 Other microscopic hematuria (principal)

== ENCOUNTER → 2019-12-02 | Outpatient (REF) | payer MEDICARE, OTHER ==
[~2019-12-02] MED LIST changes: +ACET650T61 PO; -TYLE650T35 PO
[2019-12-02 17:56] LABS: ALBUMIN 3.8 GM/DL (3.2-5.2); ALT/SGPT 27 U/L (12-78); BILIRUBIN,TOTAL 0.3 MG/DL (0.2-1.0); BLOOD UREA NITROGEN 13 MG/DL (7-18); CALCIUM LEVEL 9.5 MG/DL (8.8-10.2); CARBON DIOXIDE LEVEL 28 MEQ/L (21-32); CHLORIDE LEVEL 107 MEQ/L (98-107); CHOLESTEROL LEVEL 149 MG/DL (<200); CREATININE FOR GFR 0.94 MG/DL (0.70-1.30); GLOMERULAR FILTRATION RATE > 60.0 (>42); GLUCOSE, FASTING 84 MG/DL (70-100); HDL CHOLESTEROL 39 MG/DL (>40); LDL CHOLESTEROL 97 MG/DL (<100); NON-HDL-C 110 MG/DL; POTASSIUM SERUM 4.3 MEQ/L (3.5-5.1); SODIUM LEVEL 138 MEQ/L (136-145); TOTAL PROTEIN 6.9 GM/DL (6.4-8.2); TRIGLYCERIDES LEVEL 65 MG/DL (<150)
== END ==
LOC: M SFHCADAM 11:31
PROVIDERS: ATTEND Physician Assistant
DX: E78.2 Mixed hyperlipidemia (principal)

== ENCOUNTER → 2020-04-26 | Outpatient (REF) | payer MEDICARE, OTHER ==
[2020-04-26 14:05] LABS: APPEARANCE, URINE CLEAR (CLEAR); BACTERIA, URINE AUTO 1+ (NEGATIVE); BILIRUBIN, URINE AUTO NEGATIVE (NEGATIVE); BLOOD, URINE BLOOD NEGATIVE (NEGATIVE); COLOR, URINE YELLOW (YELLOW); GLUCOSE, URINE (UA) AUTO NEGATIVE (NEGATIVE); KETONE, URINE AUTO NEGATIVE (NEGATIVE); LEUKOCYTE ESTERASE, URINE AUTO NEGATIVE (NEGATIVE); MUCUS, URINE SMALL (NEGATIVE); NITRITE, URINE AUTO NEGATIVE (NEGATIVE); PROTEIN, URINE AUTO NEGATIVE (NEGATIVE); RBC, URINE AUTO 0 /HPF (0-3); SPECIFIC GRAVITY URINE AUTO 1.015 (1.002-1.035); SQUAMOUS EPITHELIAL CELL UR AU 0 /HPF (0-6); WBC, URINE AUTO 0 /HPF (0-3)
== END ==
LOC: M SMT 13:08
PROVIDERS: ATTEND Nurse Practitioner Women's Health
DX: R31.29 Other microscopic hematuria (principal)
CPT/HCPCS: 81001; 87086; G0463

== ENCOUNTER → 2020-06-13 | Outpatient (REF) | payer MEDICARE, OTHER ==
[2020-06-13 14:08] LABS: ALBUMIN 3.7 GM/DL (3.2-5.2); ALT/SGPT 30 U/L (12-78); BILIRUBIN,TOTAL 0.4 MG/DL (0.2-1.0); BLOOD UREA NITROGEN 12 MG/DL (7-18); CALCIUM LEVEL 9.3 MG/DL (8.8-10.2); CARBON DIOXIDE LEVEL 30 MEQ/L (21-32); CHLORIDE LEVEL 107 MEQ/L (98-107); CHOLESTEROL LEVEL 167 MG/DL (<200); CHOLESTEROL RISK RATIO 3.711 (<5); CREATININE FOR GFR 0.98 MG/DL (0.70-1.30); GLOMERULAR FILTRATION RATE > 60.0 (>42); GLUCOSE, FASTING 108 MG/DL (70-100); HDL CHOLESTEROL 45 MG/DL (>40); LDL CHOLESTEROL 104 MG/DL (<100); NON-HDL-C 122 MG/DL; POTASSIUM SERUM 3.9 MEQ/L (3.5-5.1); SODIUM LEVEL 143 MEQ/L (136-145); TOTAL PROTEIN 6.3 GM/DL (6.4-8.2); TRIGLYCERIDES LEVEL 92 MG/DL (<150)
== END ==
LOC: M SFHCADAM 10:43
PROVIDERS: ATTEND Physician Assistant
DX: E78.2 Mixed hyperlipidemia (principal); Z12.5 Encounter for screening for malignant neoplasm of prostate
CPT/HCPCS: 80053; 80061; G0103; G0463

== ENCOUNTER → 2020-10-04 | Outpatient (CLI) | payer MEDICARE, OTHER ==
--- NOTE | 2020-10-04 11:42 | REP ---
INDICATION: ABN FINDING OF LUNG COMPARISON: Multiple the latest 04/13/2020 TECHNIQUE: Standard helical technique without the administration of intravenous contrast FINDINGS: The mediastinum and pulmonary koki are stable. No mass or adenopathy has developed. There is no significant change in appearance of the imaged upper abdomen or imaged osseous structures. Evaluation of the lung martinez shows no new abnormal nodules, masses, or opacities. All nodule seen on the latest prior examination are stable. IMPRESSION: Stable lung rads category 2 CT examination of the chest. <Electronically signed by Luther Chapa > 10/04/20 [id number]
== END ==
LOC: M RAD 09:36
PROVIDERS: ATTEND Internal Medicine Pulmonary Disease
DX: R91.1 Solitary pulmonary nodule (principal)

== ENCOUNTER → 2021-01-17 | Outpatient (REF) | payer MEDICARE, OTHER ==
[2021-01-17 13:43] LABS: BACTERIA, URINE AUTO NEGATIVE (NEGATIVE); MUCUS, URINE SMALL (NEGATIVE); RBC, URINE AUTO 2 /HPF (0-3); SQUAMOUS EPITHELIAL CELL UR AU 0 /HPF (0-6); WBC, URINE AUTO 1 /HPF (0-3)
== END ==
LOC: M LAB REF 12:56
PROVIDERS: ATTEND Nurse Practitioner Family
DX: R31.29 Other microscopic hematuria (principal)

== ENCOUNTER → 2021-02-21 | Outpatient (REF) | payer MEDICARE, OTHER | LOC: M SFHCADAM 11:46 | PROVIDERS: ATTEND Physician Assistant | DX: R05 Cough (principal) ==

== ENCOUNTER → 2021-02-21 | Outpatient (CLI) | payer MEDICARE, OTHER ==
--- NOTE | 2021-02-21 12:26 | REP ---
INDICATION: PERSISTENT COUGH. COMPARISON: 08/12/2017 the latest prior FINDINGS: The superior mediastinal structures are midline. The cardiac silhouette is unremarkable in size, shape, and position. The diaphragmatic surfaces of the lungs are regular, and the costophrenic angles are clear. The pulmonary martinez are clear. The imaged osseous structures are intact. IMPRESSION: There is no acute cardiopulmonary disease. <Electronically signed by Luther Chapa > 02/21/21 [id number]
== END ==
LOC: M ADAMS 11:47
PROVIDERS: ATTEND Physician Assistant
DX: R05 Cough (principal); J44.9 Chronic obstructive pulmonary disease, unspecified; F17.210 Nicotine dependence, cigarettes, uncomplicated
CPT/HCPCS: 71046; 87426; 87804; G0463; U0003

== ENCOUNTER → 2021-04-25 | Outpatient (REF) | payer MEDICARE, OTHER | LOC: M LAB REF 12:51 | PROVIDERS: ATTEND Nurse Practitioner Family | DX: E83.42 Hypomagnesemia (principal) ==

== ENCOUNTER → 2021-05-24 | Outpatient (REF) | payer MEDICARE, OTHER ==
[2021-05-24 16:10] LABS: HEPATITIS B CORE ANTIBODY IGM NEGATIVE (NEGATIVE); HEPATITIS B SURFACE ANTIBODY NEGATIVE (POSITIVE); HEPATITIS B SURFACE ANTIGEN NEGATIVE (NEGATIVE)
[2021-05-25 04:09] LABS: MUMPS VIRUS IgG ANTIBODY >300.0 AU/mL (Immune >10.9); RUBEOLA IgG ANTIBODY >300.0 AU/mL (Immune >16.4)
== END ==
LOC: M SFHCADAM 10:51
PROVIDERS: ATTEND Physician Assistant
DX: Z71.84 Encounter for health counseling related to travel (principal)

== ENCOUNTER → 2021-10-25 | Outpatient (CLI) | payer MEDICARE, OTHER | LOC: M RAD 10:11 | PROVIDERS: ATTEND Internal Medicine Pulmonary Disease | DX: F17.218 Nicotine dependence, cigarettes, with other nicotine-induced disorders (principal) ==

== ENCOUNTER → 2022-01-29 | Outpatient (REF) | payer MEDICARE, OTHER ==
[2022-01-29 17:03] LABS: BASO # 0.1 10^3/uL (0.0-0.2); BASO % 0.8 % (0.0-1.0); EOS # 0.2 10^3/uL (0.0-0.5); EOS % 3.2 % (0.0-3.0); HEMATOCRIT 46.7 % (42.0-52.0); HEMOGLOBIN 15.5 g/dl (13.5-17.5); LYMPH # 2.3 10^3/uL (1.5-5.0); LYMPH % 39.1 % (24.0-44.0); MEAN CORPUSCULAR HEMOGLOBIN 31.8 pg (27.0-33.0); MEAN CORPUSCULAR HGB CONC 33.2 g/dl (32.0-36.5); MEAN CORPUSCULAR VOLUME 95.9 fl (80.0-96.0); MONO # 0.5 10^3/uL (0.0-0.8); MONO % 7.9 % (2.0-8.0); NEUTROPHILS # 2.9 10^3/uL (1.5-8.5); NEUTROPHILS % 48.7 % (36.0-66.0); PLATELET COUNT, AUTOMATED 254 10^3/uL (150-450); RED BLOOD COUNT 4.87 10^6/uL (4.30-6.10)
[2022-01-29 17:24] LABS: INR 1.05; PROTHROMBIN TIME 14.1 SECONDS (12.7-14.5)
[2022-01-29 17:25] LABS: PARTIAL THROMBOPLASTIN TIME 31.5 SECONDS (25.9-37.0)
[2022-01-29 17:44] LABS: ALBUMIN 3.9 GM/DL (3.2-5.2); ALT/SGPT 19 U/L (12-78); BILIRUBIN,TOTAL 0.7 MG/DL (0.2-1.0); BLOOD UREA NITROGEN 10 MG/DL (7-18); CALCIUM LEVEL 10.1 MG/DL (8.8-10.2); CARBON DIOXIDE LEVEL 30 MEQ/L (21-32); CHLORIDE LEVEL 104 MEQ/L (98-107); CHOLESTEROL LEVEL 204 MG/DL (<200); CHOLESTEROL RISK RATIO 4.744 (<5); CREATININE FOR GFR 1.01 MG/DL (0.70-1.30); FREE T4 0.77 NG/DL (0.76-1.46); GLOMERULAR FILTRATION RATE > 60.0 (>42); GLUCOSE, FASTING 84 MG/DL (70-100); HDL CHOLESTEROL 43 MG/DL (>40); IRON (FE) 124 UG/DL (65-175); LDL CHOLESTEROL 138 MG/DL (<100); NON-HDL-C 161 MG/DL; PERCENT SATURATION 36.3 % (19.7-50.0); POTASSIUM SERUM 4.2 MEQ/L (3.5-5.1); SODIUM LEVEL 137 MEQ/L (136-145); TOTAL IRON BINDING CAPACITY 342 UG/DL (250-450); TOTAL PROTEIN 7.2 GM/DL (6.4-8.2); TRIGLYCERIDES LEVEL 115 MG/DL (<150)
[2022-01-29 19:34] LABS: HEMOGLOBIN A1c 5.3 %
== END ==
LOC: M SFHCADAM 14:10
PROVIDERS: ATTEND Family Medicine
DX: E78.2 Mixed hyperlipidemia (principal); N18.30 Chronic kidney disease, stage 3 unspecified; N40.1 Benign prostatic hyperplasia with lower urinary tract symptoms; R53.83 Other fatigue; Z13.1 Encounter for screening for diabetes mellitus; I82.401 Acute embolism and thrombosis of unspecified deep veins of right lower extremity; D50.9 Iron deficiency anemia, unspecified; Z12.5 Encounter for screening for malignant neoplasm of prostate
CPT/HCPCS: 80053; 80061; 82306; 83036; 83550; 84439; 84443; 85025; 85610; 85730; G0103

== ENCOUNTER → 2022-01-29 | Outpatient (CLI) | payer MEDICARE, OTHER | LOC: M RAD 11:59 | PROVIDERS: ATTEND Physician Assistant | DX: I82.411 Acute embolism and thrombosis of right femoral vein (principal); I87.2 Venous insufficiency (chronic) (peripheral) ==

== ENCOUNTER → 2022-05-01 | Outpatient (REF) | payer MEDICARE, OTHER ==
[2022-05-01 18:19] LABS: THYROID STIMULATING HORMONE 7.032 uIU/ML (0.55-4.78)
[2022-05-01 18:20] LABS: FREE T4 0.96 NG/DL (0.89-1.76)
== END ==
LOC: M SFHCADAM 11:21
PROVIDERS: ATTEND Physician Assistant
DX: E55.9 Vitamin D deficiency, unspecified (principal); E07.9 Disorder of thyroid, unspecified

== ENCOUNTER → 2022-08-23 | Outpatient (REF) | payer MEDICARE, OTHER | LOC: M LAB REF 15:18 | PROVIDERS: ATTEND Surgery | DX: L72.0 Epidermal cyst (principal) ==

== ENCOUNTER → 2022-11-08 | Outpatient (REF) | payer MEDICARE, OTHER ==
[2022-11-08 13:45] LABS: BLOOD UREA NITROGEN 14 MG/DL (9-23); CALCIUM LEVEL 10.2 MG/DL (8.3-10.6); CARBON DIOXIDE LEVEL 30 MMOL/L (20-31); CHLORIDE LEVEL 106 MMOL/L (98-107); CREATININE FOR GFR 1.05 MG/DL (0.70-1.30); FREE T4 0.87 NG/DL (0.89-1.76); GLOMERULAR FILTRATION RATE > 60.0 (>42); GLUCOSE, FASTING 84 MG/DL (74-106); POTASSIUM SERUM 4.2 MMOL/L (3.5-5.1); SODIUM LEVEL 141 MMOL/L (136-145); THYROID STIMULATING HORMONE 5.065 uIU/ML (0.55-4.78)
[2022-11-08 13:46] LABS: TOTAL 25(OH) VITAMIN D 32.3 NG/ML (20.0-100.0)
== END ==
LOC: M SFHCADAM 11:20
PROVIDERS: ATTEND Physician Assistant
DX: E55.9 Vitamin D deficiency, unspecified (principal); E03.8 Other specified hypothyroidism; I10 Essential (primary) hypertension; Z79.899 Other long term (current) drug therapy

== ENCOUNTER → 2022-12-02 | Outpatient (CLI) | payer MEDICARE, OTHER | LOC: M RAD 16:36 | PROVIDERS: ATTEND Internal Medicine Pulmonary Disease | DX: Z87.891 Personal history of nicotine dependence (principal) ==

== ENCOUNTER → 2023-04-04 | Outpatient (REF) | payer MEDICARE, OTHER ==
[2023-04-04 17:35] LABS: FREE T4 0.91 NG/DL (0.89-1.76)
[2023-04-04 17:36] LABS: THYROID STIMULATING HORMONE 5.55 uIU/ML (0.55-4.78)
== END ==
LOC: M SFHCADAM 13:18
PROVIDERS: ATTEND Physician Assistant
DX: E03.9 Hypothyroidism, unspecified (principal)

== ENCOUNTER → 2023-06-03 | Outpatient (REF) | payer MEDICARE, OTHER ==
[2023-06-03 13:30] LABS: BASO # 0.1 10^3/uL (0.0-0.2); BASO % 0.7 % (0.0-1.0); EOS # 0.2 10^3/uL (0.0-0.5); EOS % 2.7 % (0.0-3.0); HEMATOCRIT 45.3 % (42.0-52.0); HEMOGLOBIN 15.1 g/dl (13.5-17.5); LYMPH # 2.5 10^3/uL (1.5-5.0); LYMPH % 36.6 % (24.0-44.0); MEAN CORPUSCULAR HEMOGLOBIN 31.9 pg (27.0-33.0); MEAN CORPUSCULAR HGB CONC 33.3 g/dl (32.0-36.5); MEAN CORPUSCULAR VOLUME 95.8 fl (80.0-96.0); MONO # 0.4 10^3/uL (0.0-0.8); MONO % 6.3 % (2.0-8.0); NEUTROPHILS # 3.6 10^3/uL (1.5-8.5); NEUTROPHILS % 53.4 % (36.0-66.0); PLATELET COUNT, AUTOMATED 266 10^3/uL (150-450); RED BLOOD COUNT 4.73 10^6/uL (4.30-6.10); WHITE BLOOD COUNT 6.8 10^3/uL (4.0-10.0)
[2023-06-03 13:44] LABS: HEMOGLOBIN A1c 5.2 % (4.0-6.0)
[2023-06-03 13:56] LABS: ALBUMIN 3.8 G/DL (3.2-5.2); ALKALINE PHOSPHATASE 103 U/L (46-116); ALT/SGPT 17 U/L (7.0-40); AST/SGOT 17 U/L (<34); BILIRUBIN,TOTAL 0.4 MG/DL (0.3-1.2); BLOOD UREA NITROGEN 10 MG/DL (9-23); CALCIUM LEVEL 9.8 MG/DL (8.3-10.6); CARBON DIOXIDE LEVEL 32 MMOL/L (20-31); CHLORIDE LEVEL 107 MMOL/L (98-107); CHOLESTEROL LEVEL 169 MG/DL (<200); CHOLESTEROL RISK RATIO 4.47 (<5); CREATININE FOR GFR 0.92 MG/DL (0.70-1.30); GLOMERULAR FILTRATION RATE > 60.0 (>42); GLUCOSE, FASTING 95 MG/DL (74-106); HDL CHOLESTEROL 37.8 MG/DL (>40); NON-HDL-C 131.2 MG/DL; POTASSIUM SERUM 3.9 MMOL/L (3.5-5.1); SODIUM LEVEL 140 MMOL/L (136-145); TOTAL PROTEIN 6.8 G/DL (5.7-8.2); TRIGLYCERIDES LEVEL 86 MG/DL (<150)
[2023-06-03 13:59] LABS: PSA SCREENING 1.05 NG/ML (< 4.00)
[2023-06-03 14:00] LABS: THYROID STIMULATING HORMONE 6.402 uIU/ML (0.55-4.78)
[2023-06-03 14:01] LABS: FREE T4 1.05 NG/DL (0.89-1.76)
== END ==
LOC: M SFHCADAM 11:15
PROVIDERS: ATTEND Physician Assistant
DX: E78.2 Mixed hyperlipidemia (principal); J44.9 Chronic obstructive pulmonary disease, unspecified; E03.9 Hypothyroidism, unspecified; I10 Essential (primary) hypertension; Z79.01 Long term (current) use of anticoagulants; N40.1 Benign prostatic hyperplasia with lower urinary tract symptoms; Z12.5 Encounter for screening for malignant neoplasm of prostate
CPT/HCPCS: 80053; 80061; 83036; 84439; 84443; 85025; G0103

== ENCOUNTER 2023-07-23 07:30 | Day surgery (SDC) | payer MEDICARE, OTHER ==
[~2023-07-23] VITALS: Ht 168.9 cm; Wt 73.0 kg
[~2023-07-23 07:30] MED LIST changes: +ELIQ5TAB PO; +LISI5TAB11 PO; +OMEG10002 PO; +SYNT25TA PO; +THERTAB52 PO; +VENTAER INH
[2023-07-23] MEDS: NS 1,000 ML IV ONE (07:45)
[2023-07-23] MEDS ORDERED: propofoL 200 MG/20 ML VIAL As Ordered ONE (08:28)
[2023-07-23] MEDS ORDERED: METOPROLOL 5 MG/5 ML VIAL As Ordered ONE (08:30)
[2023-07-23] MEDS ORDERED: NITROGLYCERIN 0.4MG SUBL TABLET As Ordered ONE (08:32)
[2023-07-23] MEDS ORDERED: hydrALAZINE 20MG/ML 1ML VIAL As Ordered ONE (08:52)
[2023-07-23] MEDS ORDERED: hydrALAZINE 20MG/ML 1ML VIAL IV ONE (08:55)
[2023-07-23 09:01] VITALS: TEMP 96.4
[2023-07-23 09:29] VITALS: BP 140/61; O2SAT 96
== END 2023-07-23 10:05 | disposition home or self-care (01) ==
LOC: M OPP 07:30
PROVIDERS: ATTEND Surgery
DX: D12.0 Benign neoplasm of cecum (principal); D12.2 Benign neoplasm of ascending colon; D12.3 Benign neoplasm of transverse colon; D12.5 Benign neoplasm of sigmoid colon; K57.30 Diverticulosis of large intestine without perforation or abscess without bleeding; K64.0 First degree hemorrhoids; Z86.010 Personal history of colon polyps
CPT/HCPCS: 45380; 45385; 88305; 93005; J0360

== ENCOUNTER → 2023-11-17 | Outpatient (CLI) | payer MEDICARE, OTHER ==
[2023-11-17 15:13] LABS: APPEARANCE, URINE CLOUDY (CLEAR); BACTERIA, URINE AUTO NEGATIVE (NEGATIVE); BILIRUBIN, URINE AUTO NEGATIVE (NEGATIVE); BLOOD, URINE BLOOD 3+ (NEGATIVE); COLOR, URINE AMBER (YELLOW); GLUCOSE, URINE (UA) AUTO NEGATIVE (NEGATIVE); KETONE, URINE AUTO NEGATIVE (NEGATIVE); LEUKOCYTE ESTERASE, URINE AUTO 2+ (NEGATIVE); NITRITE, URINE AUTO NEGATIVE (NEGATIVE); PROTEIN, URINE AUTO 2+ mg/dL (NEGATIVE); RBC, URINE AUTO TNTC /HPF (0-3); SPECIFIC GRAVITY URINE AUTO 1.017 (1.002-1.035); SQUAMOUS EPITHELIAL CELL UR AU 0 /HPF (0-6); UROBILINOGEN, URINE AUTO 0.2 mg/dL (0.0-2.0); WBC, URINE AUTO 103 /HPF (0-3)
== END ==
LOC: M PLALAB 12:16
PROVIDERS: ATTEND Physician Assistant
DX: R31.9 Hematuria, unspecified (principal)

== ENCOUNTER → 2023-11-26 | Outpatient (REF) | payer MEDICARE, OTHER ==
[2023-11-26 18:00] LABS: APPEARANCE, URINE HAZY (CLEAR); BACTERIA, URINE AUTO NEGATIVE (NEGATIVE); BILIRUBIN, URINE AUTO NEGATIVE (NEGATIVE); BLOOD, URINE BLOOD NEGATIVE (NEGATIVE); COLOR, URINE AMBER (YELLOW); GLUCOSE, URINE (UA) AUTO NEGATIVE (NEGATIVE); KETONE, URINE AUTO NEGATIVE (NEGATIVE); LEUKOCYTE ESTERASE, URINE AUTO NEGATIVE (NEGATIVE); NITRITE, URINE AUTO NEGATIVE (NEGATIVE); PROTEIN, URINE AUTO NEGATIVE (NEGATIVE); RBC, URINE AUTO 0 /HPF (0-3); SPECIFIC GRAVITY URINE AUTO 1.014 (1.002-1.035); SQUAMOUS EPITHELIAL CELL UR AU 0 /HPF (0-6); UROBILINOGEN, URINE AUTO 0.2 mg/dL (0.0-2.0); WBC, URINE AUTO 1 /HPF (0-3)
== END ==
LOC: M SFHCADAM 11:03
PROVIDERS: ATTEND Family Medicine
DX: R39.9 Unspecified symptoms and signs involving the genitourinary system (principal)

== ENCOUNTER → 2023-12-17 | Outpatient (REF) | payer MEDICARE, OTHER ==
[2023-12-17 13:38] LABS: APPEARANCE, URINE HAZY (CLEAR); BACTERIA, URINE AUTO NEGATIVE (NEGATIVE); BILIRUBIN, URINE AUTO NEGATIVE (NEGATIVE); BLOOD, URINE BLOOD NEGATIVE (NEGATIVE); COLOR, URINE AMBER (YELLOW); GLUCOSE, URINE (UA) AUTO NEGATIVE (NEGATIVE); KETONE, URINE AUTO NEGATIVE (NEGATIVE); LEUKOCYTE ESTERASE, URINE AUTO NEGATIVE (NEGATIVE); MUCUS, URINE SMALL (NEGATIVE); NITRITE, URINE AUTO NEGATIVE (NEGATIVE); PROTEIN, URINE AUTO NEGATIVE (NEGATIVE); RBC, URINE AUTO 1 /HPF (0-3); SPECIFIC GRAVITY URINE AUTO 1.013 (1.002-1.035); SQUAMOUS EPITHELIAL CELL UR AU 0 /HPF (0-6); UROBILINOGEN, URINE AUTO 0.2 mg/dL (0.0-2.0); WBC, URINE AUTO 0 /HPF (0-3)
== END ==
LOC: M SFHCADAM 12:42
PROVIDERS: ATTEND Physician Assistant
DX: N30.01 Acute cystitis with hematuria (principal)

== ENCOUNTER → 2024-01-21 | Outpatient (CLI) | payer MEDICARE, OTHER | LOC: M RAD 09:46 | PROVIDERS: ATTEND Internal Medicine Pulmonary Disease | DX: Z12.2 Encounter for screening for malignant neoplasm of respiratory organs (principal); F17.218 Nicotine dependence, cigarettes, with other nicotine-induced disorders; N28.1 Cyst of kidney, acquired ==

== ENCOUNTER → 2024-05-14 | Outpatient (REF) | payer MEDICARE, OTHER ==
[2024-05-14 17:30] LABS: BASO # 0.1 10^3/uL (0.0-0.2); BASO % 0.8 % (0.0-1.0); EOS # 0.2 10^3/uL (0.0-0.5); EOS % 2.2 % (0.0-3.0); HEMATOCRIT 46.7 % (42.0-52.0); HEMOGLOBIN 15.4 g/dl (13.5-17.5); LYMPH # 2.8 10^3/uL (1.5-5.0); LYMPH % 37.1 % (24.0-44.0); MEAN CORPUSCULAR HEMOGLOBIN 31.8 pg (27.0-33.0); MEAN CORPUSCULAR VOLUME 96.3 fl (80.0-96.0); MONO # 0.6 10^3/uL (0.0-0.8); MONO % 8.2 % (2.0-8.0); NEUTROPHILS # 3.8 10^3/uL (1.5-8.5); NEUTROPHILS % 51.4 % (36.0-66.0); PLATELET COUNT, AUTOMATED 272 10^3/uL (150-450); RED BLOOD COUNT 4.85 10^6/uL (4.30-6.10); WHITE BLOOD COUNT 7.4 10^3/uL (4.0-10.0)
[2024-05-14 17:54] LABS: PSA SCREENING 0.76 NG/ML (< 4.00)
[2024-05-14 17:57] LABS: ALBUMIN 3.9 G/DL (3.2-5.2); ALKALINE PHOSPHATASE 122 U/L (40-129); ALT/SGPT 20 U/L (7.0-40); AST/SGOT 22 U/L (<34); BILIRUBIN,TOTAL 0.4 MG/DL (0.3-1.2); BLOOD UREA NITROGEN 14 MG/DL (9-23); CALCIUM LEVEL 10.4 MG/DL (8.3-10.6); CARBON DIOXIDE LEVEL 31 MMOL/L (20-31); CHLORIDE LEVEL 107 MMOL/L (98-107); CHOLESTEROL LEVEL 169 MG/DL (<200); CHOLESTEROL RISK RATIO 3.79 (<5); CREATININE FOR GFR 1.14 MG/DL (0.70-1.30); GLOMERULAR FILTRATION RATE > 60.0 (>42); GLUCOSE, FASTING 72 MG/DL (74-106); HDL CHOLESTEROL 44.5 MG/DL (>40); LDL CHOLESTEROL 110.5 MG/DL (<100); NON-HDL-C 124.5 MG/DL; SODIUM LEVEL 143 MMOL/L (136-145); TOTAL PROTEIN 7.2 G/DL (5.7-8.2); TRIGLYCERIDES LEVEL 70 MG/DL (<150)
[2024-05-14 17:59] LABS: FREE T4 1.12 NG/DL (0.89-1.76)
[2024-05-14 19:15] LABS: HEMOGLOBIN A1c 5.2 % (4.0-6.0)
== END ==
LOC: M SFHCADAM 11:17
PROVIDERS: ATTEND Physician Assistant
DX: E78.2 Mixed hyperlipidemia (principal); J44.9 Chronic obstructive pulmonary disease, unspecified; F17.210 Nicotine dependence, cigarettes, uncomplicated; E03.9 Hypothyroidism, unspecified; I10 Essential (primary) hypertension; N40.1 Benign prostatic hyperplasia with lower urinary tract symptoms; Z79.01 Long term (current) use of anticoagulants; Z79.899 Other long term (current) drug therapy; Z12.5 Encounter for screening for malignant neoplasm of prostate
CPT/HCPCS: 80053; 80061; 83036; 84439; 84443; 85025; G0103

== ENCOUNTER → 2025-01-21 | Outpatient (CLI) | payer MEDICARE, OTHER | LOC: M PLAIMG 10:24 | PROVIDERS: ATTEND Internal Medicine Pulmonary Disease | DX: R91.8 Other nonspecific abnormal finding of lung field (principal) ==

== ENCOUNTER → 2025-03-01 | Outpatient (CLI) | payer MEDICARE, OTHER ==
[~2025-03-01] MED LIST changes: +FLUT1BLS8 INH; +ROSU5TAB49 PO
== END ==
LOC: M PLARAD 12:27
PROVIDERS: ATTEND Internal Medicine Pulmonary Disease
DX: R91.8 Other nonspecific abnormal finding of lung field (principal)
CPT/HCPCS: 78815; A9552

== ENCOUNTER → 2025-03-03 | Outpatient (REF) | payer MEDICARE, OTHER ==
[2025-03-03 13:12] LABS: PLATELET COUNT, AUTOMATED 358 10^3/uL (150-450)
[2025-03-03 13:16] LABS: INR 1.35
== END ==
LOC: M LABDRWAD 12:55
PROVIDERS: ATTEND Internal Medicine Pulmonary Disease
DX: R91.8 Other nonspecific abnormal finding of lung field (principal); Z79.01 Long term (current) use of anticoagulants

== ENCOUNTER 2025-03-09 06:29 | Day surgery (SDC) | payer MEDICARE, OTHER ==
[~2025-03-09] VITALS: Ht 168.9 cm; Wt 72.6 kg
[~2025-03-09 06:29] MED LIST changes: +ALBUTEROL SULFATE 2.5 MG/0.5 ML INH CONCENTRATE NEB SOLN INH ONE; +LIDOCAINE PRES-FREE 2% 10 ML AMP INH ONE
[2025-03-09] MEDS ORDERED: ALBUTEROL SULFATE 2.5 MG/0.5 ML INH CONCENTRATE NEB SOLN INH STA (06:46)
[2025-03-09] MEDS ORDERED: LR 1,000 ML IV SCH (06:50)
[2025-03-09] MEDS ORDERED: LIDOCAINE 2% 100 MG/5 ML SDV (FOR ANES.) As Ordered ONE (06:54)
[2025-03-09] MEDS ORDERED: ROCURONIUM BROMIDE 50MG/5ML VIAL As Ordered ONE (06:54)
[2025-03-09] MEDS ORDERED: SUGAMMADEX SODIUM 500 MG/5 ML VIAL As Ordered ONE (07:00)
[2025-03-09] MEDS ORDERED: ONDANSETRON 4MG/2ML VIAL As Ordered ONE (07:00)
[2025-03-09] MEDS ORDERED: dexAMETHasone 4 MG/ML 1 ML VIAL As Ordered ONE (07:00)
[2025-03-09] MEDS ORDERED: FAMOTIDINE 20 MG/2 ML VIAL IVP ONE (07:00)
[2025-03-09] MEDS ORDERED: NITROGLYCERIN 0.3 MG SUBL TAB SL STA (07:34)
[2025-03-09] MEDS ORDERED: ASPIRIN 81 MG CHEWABLE TABLET As Ordered ONE (07:42)
[2025-03-09] MEDS: EPINEPHrine 1 MG/10 ML SYRINGE 1.5IN As Ordered ONE (07:49)
[2025-03-09] MEDS: CETACAINE SPRAY 5 GM As Ordered ONE (07:50)
[2025-03-09] MEDS: THROMBIN 5,000 UNITS VIAL As Ordered ONE (07:50)
[2025-03-09] MEDS: NITROGLYCERIN 0.4 MG SUBL TABLET SL STA (07:57)
[2025-03-09] MEDS: ASPIRIN 81 MG CHEWABLE TABLET PO ONE (08:30)
[2025-03-09 08:48] LABS: CK-MB VALUE MASS 3.6 NG/ML (<3.6)
[2025-03-09 08:50] LABS: CPK CREATINE PHOSPHOKINASE 57.0 U/L (46-171); MB/CK RELATIVE INDEX 6.31 (< OR =4)
[2025-03-09] MEDS ORDERED: ASPIRIN 81 MG ENTERIC TABLET PO SCH (09:00)
[2025-03-09 10:40] LABS: CK-MB VALUE MASS 2.5 NG/ML (<3.6)
[2025-03-09 10:42] LABS: CPK CREATINE PHOSPHOKINASE 43.0 U/L (46-171); MB/CK RELATIVE INDEX 5.81 (< OR =4)
[2025-03-09 12:34] LABS: CK-MB VALUE MASS 3.0 NG/ML (<3.6)
[2025-03-09 12:35] LABS: CPK CREATINE PHOSPHOKINASE 43.0 U/L (46-171); MB/CK RELATIVE INDEX 6.97 (< OR =4)
[2025-03-09 14:19] VITALS: BP 170/78; TEMP 98.5; O2SAT 97
== END 2025-03-09 14:28 | disposition home or self-care (01) ==
LOC: M SDC 06:29
PROVIDERS: ATTEND Internal Medicine Pulmonary Disease
DX: R91.8 Other nonspecific abnormal finding of lung field (principal); R07.9 Chest pain, unspecified; J44.9 Chronic obstructive pulmonary disease, unspecified; Z53.09 Procedure and treatment not carried out because of other contraindication; F17.218 Nicotine dependence, cigarettes, with other nicotine-induced disorders; Z79.01 Long term (current) use of anticoagulants; Z79.899 Other long term (current) drug therapy; Z96.641 Presence of right artificial hip joint

== ENCOUNTER → 2025-03-25 | Outpatient (RCR) | payer MEDICARE, OTHER ==
[~2025-03-25] MED LIST changes: -ALBUTEROL SULFATE 2.5 MG/0.5 ML INH CONCENTRATE NEB SOLN INH ONE; -LIDOCAINE PRES-FREE 2% 10 ML AMP INH ONE
== END ==
LOC: M ONCR 11:30
PROVIDERS: ATTEND General Practice
DX: Z51.0 Encounter for antineoplastic radiation therapy (principal); C34.31 Malignant neoplasm of lower lobe, right bronchus or lung

== ENCOUNTER 2025-03-26 11:26 | Outpatient (RCR) | payer MEDICARE, OTHER ==
[2025-04-06] MEDS ORDERED: PANT40TA29 PO (16:33)
[2025-04-06] MEDS ORDERED: SENN18TA PO (16:33)
[2025-04-06] MEDS ORDERED: ATIV1TAB7 PO (16:33)
[2025-04-06] MEDS ORDERED: MORP1SOL5 PO (16:33)
[2025-04-06] MEDS ORDERED: MIRA33506 PO (16:33)
[2025-04-06] MEDS ORDERED: ATRO2DRO4 SL (16:33)
[2025-04-06] MEDS ORDERED: HYOS125TA SL (16:33)
[2025-04-06] MEDS ORDERED: ACET32TAB PO (16:33)
== END 2025-04-24 ==
LOC: M ONCR 11:26
PROVIDERS: ATTEND General Practice
DX: Z51.0 Encounter for antineoplastic radiation therapy (principal); C34.31 Malignant neoplasm of lower lobe, right bronchus or lung